=== PATIENT | male | born 1945 | race Caucasian/White ===

== ENCOUNTER 2021-09-10 13:10 | Inpatient (IN) | payer MEDICARE ==
[~2021-09-10] VITALS: Ht 157.5 cm; Wt 65.3 kg
[2021-09-10 15:05] LABS: BASOPHIL 0.2 % (0-2); EOSINOPHIL 0 % (0-7); HCT 32.7 % (42.0-52.0); HGB 10.8 g/dl (13.2-18.0); LYMPHOCYTE 11.4 % (15-48); MCH 36.9 pg (25.0-31.0); MCV 111.6 fL (78.0-100.0); MONOCYTE 7.8 % (0-12); MPV 10.4 fL (6.0-9.5); NEUTROPHIL 79.8 % (41-80); NRBC 0; PLT 128 K/uL (150-400); RBC 2.93 M/uL (4.70-6.00); RDW 18.3 % (11.5-14.0); WBC 8.5 K/uL (4.0-10.5)
[2021-09-10 15:09] LABS: INR 1.24 (0.9-1.2); PROTHROMBIN TIME 14.9 SECONDS (11.8-13.4)
[2021-09-10 15:10] LABS: PTT 31.5 SECONDS (24.4-34.7)
[2021-09-10 15:47] LABS: LACTIC ACID 2.4 mmol/L (0.4-1.9)
[2021-09-10 15:55] LABS: ALBUMIN 2.8 g/dL (3.4-5.0); BILIRUBIN - TOTAL 1.6 mg/dL (0.2-1.0); BUN/CREAT RATIO (CALC) 17.6 RATIO; CREATININE 1.42 mg/dL (0.67-1.17); GLOBULIN (CALCULATION) 4.3 g/dL; POTASSIUM 4.5 mmol/L (3.5-5.1); TOTAL PROTEIN 7.1 g/dL (6.4-8.2)
[2021-09-10 16:45] LABS: CORONAVIRUS 2019 SARS-COV-2 NEGATIVE (NEGATIVE); INFLUENZA A NAA NEGATIVE (NEGATIVE)
[2021-09-10 19:26] LABS: BILIRUBIN 1+ mg/dL (NEGATIVE); BLOOD 1+ Ery/uL (NEGATIVE); COLOR YELLOW (YELLOW); GLUCOSE (U) NORMAL (NORMAL); LEUKOCYTES 1+ Leu/uL (NEGATIVE); NITRITE NEGATIVE (NEGATIVE); PROTEIN 1+ mg/dL (NEGATIVE); SPECIFIC GRAVITY 1.015 (1.001-1.030)
[2021-09-10 19:27] LABS: CLARITY SLIGHTLY HAZY (CLEAR)
[2021-09-10 19:33] LABS: BACTERIA 4+; URINARY WBC 20-50
[2021-09-10 19:50] LABS: DEPAKENE/VALPROIC ACID 77.1 ug/mL (50.0-100.0); MAGNESIUM 1.7 mg/dL (1.8-2.4); PHOSPHORUS 3.5 mg/dL (2.6-4.7)
[2021-09-10] MEDS ORDERED: MAG-OXIDE 400M400 MG PO (20:58)
[2021-09-10] MEDS ORDERED: PEPCID AC20 MG PO (20:58)
[2021-09-10] MEDS ORDERED: VITAMIN B-121000 MC1 PO (20:59)
[2021-09-10] MEDS ORDERED: LIPITOR40 MG PO (21:01)
[2021-09-10] MEDS ORDERED: DEPAKOTE250 MG PO (21:01)
[2021-09-10] MEDS ORDERED: NOXIFOL-D32500 UNIT PO (21:03)
[2021-09-10] MEDS ORDERED: MEGACE ORA6 TSP/1 OZ PO (21:05)
[2021-09-10] MEDS ORDERED: CALCIUM + D3 E1 EACH PO (21:06)
[2021-09-10] MEDS ORDERED: MAXIMUM DAILY1 EAC1 PO (21:06)
[2021-09-11 05:29] LABS: BASOPHIL 0.1 % (0-2); EOSINOPHIL 0.1 % (0-7); HCT 24.7 % (42.0-52.0); HGB 8.1 g/dl (13.2-18.0); LYMPHOCYTE 6.9 % (15-48); MCH 36.7 pg (25.0-31.0); MCHC 32.8 g/dL (32.0-36.0); MCV 111.8 fL (78.0-100.0); MONOCYTE 8.4 % (0-12); MPV 10.1 fL (6.0-9.5); NEUTROPHIL 83.8 % (41-80); NRBC 0; PLT 104 K/uL (150-400); RBC 2.21 M/uL (4.70-6.00); RDW 17.6 % (11.5-14.0); WBC 9.7 K/uL (4.0-10.5)
[2021-09-11 05:49] LABS: ALBUMIN 2.7 g/dL (3.4-5.0); BILIRUBIN - TOTAL 1.3 mg/dL (0.2-1.0); BUN/CREAT RATIO (CALC) 17.6 RATIO; C-REACTIVE PROTEIN 12.3 mg/dL (<=0.90); CREATININE 1.02 mg/dL (0.67-1.17); PHOSPHORUS 3.3 mg/dL (2.6-4.7); POTASSIUM 3.6 mmol/L (3.5-5.1); TOTAL PROTEIN 5.7 g/dL (6.4-8.2)
[2021-09-11 05:53] LABS: CKMB 1.7 ng/mL (0.0-3.6)
--- NOTE | 2021-09-11 10:39 | NUR ---
1015 PATIENT DISCHARGED TO [facility] VIA ALS. REPORT GIVEN TO [facility] IN CCU. FAMILY NOTIFIED OF DISCHARGE AND AGREEABLE.
== END 2021-09-11 10:28 | disposition other institution (70) | DRG 871 ==
LOC: FER 13:10 → FMS 17:40 → FICU 17:40
PROVIDERS: Internal Medicine; Nurse Practitioner; ADMIT Internal Medicine
PROC: 3E03329 Introduction of Other Anti-infective into Peripheral Vein, Percutaneous Approach (ICD-10-PCS; principal; 2021-09-10)
PROC: 3E033XZ Introduction of Vasopressor into Peripheral Vein, Percutaneous Approach (ICD-10-PCS; 2021-09-10)
PROC: 06HN33Z Insertion of Infusion Device into Left Femoral Vein, Percutaneous Approach (ICD-10-PCS; 2021-09-10)
PROC: 0T9B70Z Drainage of Bladder with Drainage Device, Via Natural or Artificial Opening (ICD-10-PCS; 2021-09-10)
DX: A41.9 Sepsis, unspecified organism (principal); R65.21 Severe sepsis with septic shock; G93.41 Metabolic encephalopathy; E43 Unspecified severe protein-calorie malnutrition; N17.0 Acute kidney failure with tubular necrosis; N30.01 Acute cystitis with hematuria; Z20.822 Contact with and (suspected) exposure to COVID-19; L89.322 Pressure ulcer of left buttock, stage 2; E86.0 Dehydration; K59.01 Slow transit constipation; R00.1 Bradycardia, unspecified; E11.22 Type 2 diabetes mellitus with diabetic chronic kidney disease; N18.9 Chronic kidney disease, unspecified; D69.6 Thrombocytopenia, unspecified; D53.9 Nutritional anemia, unspecified; R77.8 Other specified abnormalities of plasma proteins; R29.6 Repeated falls; R74.01 Elevation of levels of liver transaminase levels; R79.89 Other specified abnormal findings of blood chemistry; Z68.24 Body mass index [BMI] 24.0-24.9, adult; Z79.899 Other long term (current) drug therapy
CPT/HCPCS: 36415; 36600; 70450; 71250; 80053; 80164; 81001; 82140; 82550; 82553; 82803; 83010; 83036; 83605; 83615; 83690; 83735; 83880; 84100; 84145; 84484; 85025; 85610; 85730; 86140; 87040; 87076; 87077; 87088; 87186; 93005; 96365; 97162; 97166; 97530; 97530-GP; C9113; G0378; J0461; J1265; J2543; J3475; J7030; J7040; P9047; U0002